=== PATIENT | female | born 1985 | race Two or more races ===

== ENCOUNTER 2019-05-25 20:48 | Emergency (ER) | payer MEDICAID ==
[~2019-05-25] VITALS: Ht 172.7 cm; Wt 131.0 kg
[2019-05-25 20:54] VITALS: BP 125/65
--- NOTE | 2019-05-25 21:12 | NUR ---
PT. TO ROOM FROM LOBBY WITH STEADY GAIT.
--- NOTE | 2019-05-25 22:15 | NUR ---
WRIST LACER APPLIED. +CMS. DC EDUCATION PROVIDED,PT DEMONSTRATES UNDERSTANDING. PT AMBULATED STEADILY TO DC WITH RN AND SO
== END 2019-05-25 22:16 | disposition home or self-care (01) ==
LOC: MERGE 22:05 → ED 22:05
DX: S52.571A Other intraarticular fracture of lower end of right radius, initial encounter for closed fracture (principal); W31.89XA Contact with other specified machinery, initial encounter; Y93.89 Activity, other specified; Y92.099 Unspecified place in other non-institutional residence as the place of occurrence of the external cause; Y99.8 Other external cause status
CPT/HCPCS: 29125; 99283

== ENCOUNTER 2019-06-19 19:17 | Emergency (ER) | payer MEDICAID ==
[~2019-06-19] VITALS: Ht 172.7 cm; Wt 131.0 kg
[2019-06-19 19:19] VITALS: BP 146/95
[2019-06-19] MEDS ORDERED: METHOCARBAMOL 750 MG TABLET ONE (19:57)
[2019-06-19] MEDS ORDERED: METHOCARBAMOL 750 MG TABLET PO ONE (20:00)
== END 2019-06-19 20:51 | disposition home or self-care (01) ==
LOC: ED 20:45
DX: S39.012A Strain of muscle, fascia and tendon of lower back, initial encounter (principal); S29.012A Strain of muscle and tendon of back wall of thorax, initial encounter; V49.50XA Passenger injured in collision with unspecified motor vehicles in traffic accident, initial encounter; Y93.89 Activity, other specified; Y92.488 Other paved roadways as the place of occurrence of the external cause; Y99.8 Other external cause status
CPT/HCPCS: 72072; 72110; 99283

== ENCOUNTER 2019-06-29 20:29 | Emergency (ER) | payer MEDICAID ==
[~2019-06-29] VITALS: Ht 172.7 cm; Wt 135.8 kg
[2019-06-29 20:31] VITALS: BP 139/79
--- NOTE | 2019-06-29 20:43 | NUR ---
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
--- NOTE | 2019-06-29 21:18 | NUR ---
BACK FROM RAD
--- NOTE | 2019-06-29 21:25 | NUR ---
ALL RESULTS BACK AT THIS TIME, CHART UP FOR RECHECK
== END 2019-06-29 21:43 | disposition home or self-care (01) ==
LOC: ED 21:00
DX: G89.11 Acute pain due to trauma (principal); M25.562 Pain in left knee; H60.91 Unspecified otitis externa, right ear; L03.311 Cellulitis of abdominal wall
CPT/HCPCS: 99283

== ENCOUNTER 2019-07-14 11:50 | Emergency (ER) | payer MEDICAID ==
[~2019-07-14] VITALS: Ht 172.7 cm; Wt 137.3 kg
[2019-07-14 11:52] VITALS: BP 133/64
== END 2019-07-14 12:58 | disposition home or self-care (01) ==
LOC: ED 12:52
DX: O9A.211 Injury, poisoning and certain other consequences of external causes complicating pregnancy, first trimester (principal); S83.412A Sprain of medial collateral ligament of left knee, initial encounter; Z3A.08 8 weeks gestation of pregnancy; W01.0XXA Fall on same level from slipping, tripping and stumbling without subsequent striking against object, initial encounter; Y93.89 Activity, other specified; Y92.009 Unspecified place in unspecified non-institutional (private) residence as the place of occurrence of the external cause; Y99.8 Other external cause status
CPT/HCPCS: 29505; 99283

== ENCOUNTER 2019-08-11 21:38 | Emergency (ER) | payer MEDICAID ==
[~2019-08-11] VITALS: Ht 172.7 cm; Wt 139.4 kg
[2019-08-11 21:45] VITALS: BP 108/64
[2019-08-11] MEDS ORDERED: IBUPROFEN 800 MG TABLET PO STA (22:23)
[2019-08-11] MEDS ORDERED: IBUPROFEN 800 MG TABLET ONE (22:25)
== END 2019-08-11 22:37 | disposition home or self-care (01) ==
LOC: ED 22:08
DX: S63.521A Sprain of radiocarpal joint of right wrist, initial encounter (principal); W01.0XXA Fall on same level from slipping, tripping and stumbling without subsequent striking against object, initial encounter; Y93.89 Activity, other specified; Y92.89 Other specified places as the place of occurrence of the external cause; Y99.8 Other external cause status
CPT/HCPCS: 29125; 99283

== ENCOUNTER 2019-09-07 02:09 | Emergency (ER) | payer MEDICAID ==
[~2019-09-07] VITALS: Ht 172.7 cm; Wt 139.0 kg
[2019-09-07 02:11] VITALS: BP 144/93
[2019-09-07] MEDS ORDERED: KETOROLAC 30 MG/1 ML IM ONE (03:00)
[2019-09-07] MEDS ORDERED: KETOROLAC 30 MG/1 ML ONE (03:03)
--- NOTE | 2019-09-07 03:15 | NUR ---
PATIENT WAS GIVEN INSTRUCTIONS REGARDING INJECTION MEDICATIONS, PATIENT DECIDED THAT SHE DID NOT WANT TO WAIT 30MINS AFTER INJECTIONS. PATIENT WAS ABLE TO VERBALIZED UNDERSTANDING OF POSSIBLE COMPLICATIONS AND SELF CARE AT HOME. NO NOTED ACUTE DISTRESS UPON DISCHARGE.
== END 2019-09-07 03:13 | disposition home or self-care (01) ==
LOC: ED 03:09
DX: G89.11 Acute pain due to trauma (principal); M25.561 Pain in right knee; V00.131A Fall from skateboard, initial encounter; Y93.51 Activity, roller skating (inline) and skateboarding; Y92.410 Unspecified street and highway as the place of occurrence of the external cause; Y99.8 Other external cause status
CPT/HCPCS: 73564; 96372; 99283; J1885

== ENCOUNTER 2019-09-14 14:12 | Emergency (ER) | payer MEDICAID ==
[~2019-09-14] VITALS: Ht 172.7 cm; Wt 135.8 kg
--- NOTE | 2019-09-14 14:27 | NUR ---
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
[2019-09-14 15:00] VITALS: BP 128/78
[2019-09-14] MEDS ORDERED: HYDROcodone/APAP 5/325 TABLET ONE (15:31)
--- NOTE | 2019-09-14 15:45 | NUR ---
PATIENT STATES HAS CRUTCHES AT HOME AND DOESNT WANT OURS, SHE WILL TAKE WHEELCHAIR OUT. PATIENT DISCHARGE REVEIWED, PATIENT SPLINTED. REVIEWED MEDS
[2019-09-14] MEDS ORDERED: HYDROcodone/APAP 5/325 TABLET PO ONE (16:00)
== END 2019-09-14 15:47 | disposition home or self-care (01) ==
LOC: ED 14:37
DX: S92.515A Nondisplaced fracture of proximal phalanx of left lesser toe(s), initial encounter for closed fracture (principal); X58.XXXA Exposure to other specified factors, initial encounter; Y93.01 Activity, walking, marching and hiking; Y92.098 Other place in other non-institutional residence as the place of occurrence of the external cause; Y99.8 Other external cause status
CPT/HCPCS: 99283

== ENCOUNTER 2019-10-03 14:08 | Emergency (ER) | payer MEDICAID ==
[~2019-10-03] VITALS: Ht 172.7 cm; Wt 136.7 kg
[2019-10-03 14:12] VITALS: BP 136/75
--- NOTE | 2019-10-03 14:21 | NUR ---
PT CAME IN AFTER TRIPPIN OVER SOME WOOD IN HER BACKYARD AND FELL AND HIT HER HEAD. PT STATES SHE LOST CONCIOUSNESS AND WAS CONFUSED SHORTLY AFTER COMING TO. PT DENIES TAKING BLOOD THINNERS. PT IS AOX4. SHE DOES HOWEVER STATE SHE IS "TIRED" BUT DOES NOT APPEAR DROWSY OR LETHARGIC. PT IS ACCOMPANIED BY WHO WITNESSED THE FALL.
== END 2019-10-03 16:41 | disposition home or self-care (01) ==
LOC: ED 15:28
DX: S80.02XA Contusion of left knee, initial encounter (principal); S06.0X1A Concussion with loss of consciousness of 30 minutes or less, initial encounter; W01.0XXA Fall on same level from slipping, tripping and stumbling without subsequent striking against object, initial encounter; Y93.89 Activity, other specified; Y92.098 Other place in other non-institutional residence as the place of occurrence of the external cause; Y99.8 Other external cause status
CPT/HCPCS: 70450; 99284

== ENCOUNTER 2019-10-09 13:38 | Emergency (ER) | payer MEDICAID ==
[~2019-10-09] VITALS: Ht 177.8 cm; Wt 90.9 kg
[2019-10-09 13:47] VITALS: BP 138/89
--- NOTE | 2019-10-09 14:17 | NUR ---
PT PROVIDED W/ ICE PACK. LT ANKLE ELEVATED ON PILLOW. AWAITING XRAY.
--- NOTE | 2019-10-09 14:27 | NUR ---
RAD IN ROOM.
--- NOTE | 2019-10-09 14:36 | NUR ---
TASK RN NOTE: PT SITTING UP IN BED WITH CELL PHONE IN HAND. NAD NOTED AT THIS TIME. AWAITING IMAGING RESULTS.
== END 2019-10-09 15:20 | disposition home or self-care (01) ==
LOC: ED 14:34
DX: S93.492A Sprain of other ligament of left ankle, initial encounter (principal); X50.1XXA Overexertion from prolonged static or awkward postures, initial encounter; Y93.89 Activity, other specified; Y92.098 Other place in other non-institutional residence as the place of occurrence of the external cause; Y99.8 Other external cause status
CPT/HCPCS: 99284

== ENCOUNTER 2019-10-22 18:24 | Emergency (ER) | payer MEDICAID ==
[~2019-10-22] VITALS: Ht 175.3 cm; Wt 95.3 kg
[2019-10-22 19:00] VITALS: BP 153/91
--- NOTE | 2019-10-22 21:02 | NUR ---
ASSUMED CARE OF PT FROM LOBBY. PT IS WALKING AROUND ROOM WITH C-COLLAR IN PLACE. RADIALOGY RESULTS ARE BACK.
[2019-10-22] MEDS ORDERED: KETOROLAC 30 MG/1 ML ONE (21:19)
[2019-10-22] MEDS ORDERED: METHOCARBAMOL 750 MG TABLET ONE (21:19)
[2019-10-22] MEDS ORDERED: KETOROLAC 30 MG/1 ML IM ONE (21:30)
[2019-10-22] MEDS ORDERED: METHOCARBAMOL 750 MG TABLET PO ONE (21:30)
== END 2019-10-22 21:37 | disposition home or self-care (01) ==
LOC: ED 21:06
DX: S16.1XXA Strain of muscle, fascia and tendon at neck level, initial encounter (principal); S29.012A Strain of muscle and tendon of back wall of thorax, initial encounter; W01.0XXA Fall on same level from slipping, tripping and stumbling without subsequent striking against object, initial encounter; Y93.89 Activity, other specified; Y92.410 Unspecified street and highway as the place of occurrence of the external cause; Y99.8 Other external cause status
CPT/HCPCS: 72020; 72050; 72072; 96372; 99284; J1885